=== PATIENT | male | born 1995 | race African-American/Black ===

== ENCOUNTER 2017-05-29 13:35 | Inpatient (IN) | payer BC ==
[2017-05-29] MEDS ORDERED: ZOLPIDEM 5 MG TABLET. PO (14:30)
[2017-05-29] MEDS ORDERED: IBUPROFEN 400 MG TABLET. PO (14:30)
[2017-05-29] MEDS ORDERED: ACETAMINOPHEN 325 MG TABLET. PO (14:30)
[2017-05-29 15:17] LABS: ADD MAN DIFF? NO
[2017-05-29 15:20] LABS: BASO % 0 % (0-3); EOS # 0.1 x10^3/uL (0.0-0.7); EOS % 2 % (0-3); HEMATOCRIT 42.5 % (39.0-53.0); HEMOGLOBIN 14.2 g/dL (13.0-17.5); LYMPH # 1.3 x10^3/uL (1.0-4.8); LYMPH % 20 % (24-48); MEAN CORPUSCULAR HEMOGLOBIN 29 pg (25-35); MEAN CORPUSCULAR HGB CONC 34 g/dL (31-37); MEAN CORPUSCULAR VOLUME 87 fL (79-100); MONO # 0.5 x10^3/uL (0.0-1.1); MONO % 7 % (0-9); NEUT # 4.5 x10^3uL (1.8-7.7); NEUT % 70 % (31-73); PLATELET COUNT 282 x10^3/uL (140-400); RED CELL DISTRIBUTION WIDTH 12.9 % (11.5-14.5); WHITE BLOOD COUNT 6.4 x10^3/uL (4.0-11.0)
[2017-05-29 15:39] LABS: ALBUMIN 3.7 g/dL (3.4-5.0); ALBUMIN/GLOBULIN RATIO 1.1 (1.0-1.7); ALK PHOS 108 U/L (46-116); ALT (SGPT) 22 U/L (16-63); ANION GAP 8 (6-14); AST (SGOT) 21 U/L (15-37); BLOOD UREA NITROGEN 11 mg/dL (8-26); BUN/CREATININE RATIO 12 (6-20); CALCIUM 8.8 mg/dL (8.5-10.1); CARBON DIOXIDE 30 mmol/L (21-32); CHLORIDE 105 mmol/L (98-107); CHOLESTEROL 167 mg/dL (0-200); CREATININE 0.9 mg/dL (0.7-1.3); GFR 125.4; GLUCOSE 79 mg/dL (70-99); HDLC 36 mg/dL (40-60); LDLC 120 mg/dL (0-100); NON-HDL CHOLESTEROL 131 mg/dL (0-129); POTASSIUM 4.2 mmol/L (3.5-5.1); SODIUM 143 mmol/L (136-145); TOTAL BILIRUBIN 0.6 mg/dL (0.2-1.0); TOTAL PROTEIN 7.2 g/dL (6.4-8.2); TRIGLYCERIDES 57 mg/dL (0-150); VLDLC 11 mg/dL (0-40)
[2017-05-29 15:39] LABS: TROPONINI < 0.017 ng/mL (0.000-0.055)
[2017-05-29 15:46] LABS: CHOLESTEROL/HDL RATIO 4.6
[2017-05-29 16:25] LABS: THYROID STIM HORMONE (TSH) 0.607 uIU/mL (0.358-3.74)
[2017-05-29] MEDS ORDERED: IOHEXOL 300 MG/ML 100ML VIAL. IV (17:30)
[2017-05-29] MEDS ORDERED: CONTRAST GIVEN MC (17:30)
[2017-05-29 18:15] LABS: TROPONINI < 0.017 ng/mL (0.000-0.055)
[2017-05-29 22:47] LABS: TROPONINI < 0.017 ng/mL (0.000-0.055)
[2017-05-30] MEDS: ASPIRIN CHEWABLE 81 MG TABLET. PO (08:00)
[2017-05-30 11:45] LABS: SEDIMENTATION RATE 12 (0-15)
[2017-05-30 21:38] LABS: INR 1.1 (0.8-1.1); PARTIAL THROMBOPLASTIN TIME 30 SEC (24-38); PROTHROMBIN TIME PATIENT 13.4 SEC (11.7-14.0)
[2017-05-30 22:16] LABS: HIV ANTIBODY Non Reactive (Non Reactive)
[2017-05-30] MEDS: IV NORMAL SALINE 1000ML BAG 1,000 ML IV (23:56)
[2017-05-31] MEDS: ASPIRIN CHEWABLE 81 MG TABLET. PO (08:00)
[2017-05-31] MEDS ORDERED: PROPOFOL 100 ML IV (10:35)
[2017-05-31] MEDS ORDERED: DEXAMETHASONE SOD PHOS 20 MG/5 ML VIAL. (10:35)
[2017-05-31] MEDS ORDERED: ONDANSETRON PF 4 MG/2 ML VIAL. (10:35)
[2017-05-31] MEDS ORDERED: LIDOCAINE 2% PF Vial for OR 5 ML VIAL. (10:35)
[2017-05-31] MEDS ORDERED: MIDAZOLAM HCL/PF 2 MG/2 ML VIAL. (10:36)
[2017-05-31] MEDS ORDERED: fentaNYL PF VIAL 250 MCG/5 ML VIAL (10:36)
[2017-05-31] MEDS ORDERED: SUCCINYLCHOLINE 200 MG/10 ML VIAL. (10:37)
[2017-05-31] MEDS ORDERED: PHENYLEPHRINE in 0.9% NACL PF 1 MG/10 ML SYRINGE. IV (10:39)
[2017-05-31] MEDS ORDERED: ROCURONIUM 50 MG/5 ML VIAL. (10:40)
[2017-05-31] MEDS: IV RINGERS,LACTATED 1000ML 1,000 ML IV (11:12)
[2017-05-31] MEDS ORDERED: ceFAZolin 2GM PREMIX 2 GM/50 ML BAG IV (12:00)
[2017-05-31] MEDS: LIDOCAINE 1% PF 30 ML VIAL. (12:22)
[2017-05-31] MEDS: BUPIVACAINE MPF 0.5% 30 ML VIAL. (12:22)
[2017-05-31] MEDS ORDERED: NEOSTIGMINE METHYLSULFATE 5 MG/5 ML SYRINGE. (12:55)
[2017-05-31] MEDS ORDERED: GLYCOPYRROLATE 1 MG/5 ML VIAL. (12:55)
[2017-05-31] MEDS ORDERED: SEVOFLURANE 61 TO 120 MINUTES. IH (13:15)
[2017-06-01 03:17] LABS: ANGIOTENSIN CONVERTING ENZYME 30 U/L (14-82)
[2017-06-01] MEDS ORDERED: MORPHINE SULFATE 2 MG/ML DISP.SYRIN. IV (07:00)
[2017-06-01] MEDS ORDERED: LIDOCAINE 1% PF 2 ML VIAL. ID (07:00)
[2017-06-01] MEDS ORDERED: fentaNYL PF VIAL 100 MCG/2 ML VIAL IV ×2 (07:00)
[2017-06-01] MEDS ORDERED: HYDROmorphone 2 MG/ML VIAL IV (07:00)
[2017-06-01] MEDS ORDERED: ONDANSETRON PF 4 MG/2 ML VIAL. IV (07:00)
[2017-06-01] MEDS ORDERED: PROCHLORPERAZINE 10 MG/2 ML VIAL. IV (07:00)
[2017-06-02 06:41] LABS: T-SPOT TB TEST(OXFORD) SEE SEPARATE REPORT
== END 2017-05-31 19:39 | disposition home or self-care (01) | DRG 168 ==
LOC: 2 NORTH 13:35 → 5 NORTH 05-30 12:26
PROC: 07B74ZX Excision of Thorax Lymphatic, Percutaneous Endoscopic Approach, Diagnostic (ICD-10-PCS; principal; 2017-05-31 11:30)
DX: D86.85 Sarcoid myocarditis (principal); E32.0 Persistent hyperplasia of thymus; I51.7 Cardiomegaly; Z82.49 Family history of ischemic heart disease and other diseases of the circulatory system; R59.0 Localized enlarged lymph nodes
CPT/HCPCS: 36415; 71046; 71100; 71275; 80053; 80061; 82164; 84443; 84484; 85025; 85610; 85651; 85730; 86481; 86703; 87071; 87075; 87102; 87116; 87205; 88305; 88312; 88331; 93005; 93306; C1769; J0330; J0690; J1100; J2250; J2370; J2405; J2704; J2710; J3010; J3490; J7030; J7120